=== PATIENT | male | born 1975 | race Caucasian/White ===

== ENCOUNTER 2021-07-29 11:15 | Emergency (ER) | payer MEDICAID, SELFPAY ==
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
[2021-07-29 11:30] VITALS: BP 127/81; BP 140/80; PULSE 83; PULSE 89; RESP 16; TEMP 36.9; O2SAT 97; O2SAT 99; BMI 26.6
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
== END 2021-07-29 15:55 | disposition home or self-care (01) ==
PROVIDERS: Emergency Provider Emergency Medicine; PCP Internal Medicine
DX: S13.4XXA Sprain of ligaments of cervical spine, initial encounter (principal); V43.62XA Car passenger injured in collision with other type car in traffic accident, initial encounter; Y93.89 Activity, other specified; Y92.414 Local residential or business street as the place of occurrence of the external cause; Y99.8 Other external cause status
CPT/HCPCS: 70450; 72125; 99283; 99284